=== PATIENT | female | born 1940 | race Two or more races ===

== ENCOUNTER 2021-09-28 11:11 | Outpatient (CLI) | payer OTHER ==
[~2021-09-28 11:11] MED LIST: PERCOCET 5/3251 TAB PO
== END 2021-09-28 11:12 | disposition home or self-care (01) ==
LOC: NUCLEAR 11:11
PROVIDERS: ATTEND General Practice
DX: R60.0 Localized edema (principal); I87.2 Venous insufficiency (chronic) (peripheral); M79.604 Pain in right leg; M79.605 Pain in left leg